=== PATIENT | male | born 1970 | race Caucasian/White ===

== ENCOUNTER 2024-12-05 06:52 | Emergency (ER) | payer BC ==
[~2024-12-05] VITALS: Ht 177.8 cm; Wt 77.1 kg
[2024-12-05] MEDS ORDERED: Ondansetron 4 MG SoluTab SL ONE (07:20)
[2024-12-05] MEDS ORDERED: Loperamide HCl 2 MG Cap PO ONE (07:20)
[2024-12-05 07:46] LABS: Calcium, Ionized (POC) 1.12 mmol/L (1.10-1.46); Chloride (POC) 104 mmol/L (98-108); Creatinine (POC) 1.1 mg/dL (0.8-1.3); Glucose (ISTAT POC) 119 mg/dL (70-99); Hemoglobin (POC) 16.3 g/dL (13.5-17.5); Potassium (POC) 4.1 mmol/L (3.5-5.5); Sodium (POC) 138 mmol/L (135-148); Total CO2 (POC) 24 mmol/L (21-32)
[2024-12-05] MEDS ORDERED: LOPE2C PO (08:27)
[2024-12-05] MEDS ORDERED: ONDA4ODT MM (08:27)
[2024-12-05 08:40] LABS: INFLUENZA A AG Positive (NEGATIVE); INFLUENZA B AG Negative (NEGATIVE)
[2024-12-05 08:41] LABS: CORONAVIRUS COVID-19 AG Negative (NEGATIVE)
== END 2024-12-05 09:17 | disposition home or self-care (01) ==
LOC: ER 06:52
PROVIDERS: Emergency Medicine
DX: J10.1 Influenza due to other identified influenza virus with other respiratory manifestations (principal)
CPT/HCPCS: 80047; 85014; 87428-QW; A9270